=== PATIENT | female | born 1995 | race American Indian/Alaskan Native ===

== ENCOUNTER 2020-12-02 10:35 | Emergency (ER) | payer OTHER ==
[2020-12-02 10:54] VITALS: BP 129/81
--- NOTE | 2020-12-02 11:32 | XRay Report ---
CHEST 2 VIEWS INDICATION: Chest Pain. COMPARISON: None FINDINGS: Support devices: None. Heart: Within normal limits. Lungs/pleura: No acute air space or interstitial disease. No pneumothorax. Additional findings: None. IMPRESSION: No acute findings. Signer Name: Aron Mccarty Jr, MD Signed: 12/02/2020 11:27 AM Workstation Name: [id number]
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
--- NOTE | 2020-12-04 12:10 | Electrocardiograph Report ---
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
== END 2020-12-02 12:37 | disposition home or self-care (01) ==
LOC: ED 10:35
DX: S29.011A Strain of muscle and tendon of front wall of thorax, initial encounter (principal); S16.1XXA Strain of muscle, fascia and tendon at neck level, initial encounter; S46.812A Strain of other muscles, fascia and tendons at shoulder and upper arm level, left arm, initial encounter; Z79.899 Other long term (current) drug therapy; V89.2XXA Person injured in unspecified motor-vehicle accident, traffic, initial encounter; Y93.89 Activity, other specified; Y92.488 Other paved roadways as the place of occurrence of the external cause; Y99.8 Other external cause status
CPT/HCPCS: 71046; 93005; 99283